=== PATIENT | female | born 1970 | race Caucasian/White ===

== ENCOUNTER 2019-10-12 12:19 | Emergency (ER) | payer OTHER ==
[~2019-10-12] VITALS: Ht 149.9 cm; Wt 65.8 kg
[2019-10-12 12:40] VITALS: BP 141/77
--- NOTE | 2019-10-12 12:50 | NUR ---
PT WHEELCHAIRED TO ER BED 11
--- NOTE | 2019-10-12 13:03 | NUR ---
48 Y/O FEMALE REFFERED TO ER FROM MD DAWSON D/T HIGH BLOOD PRESSURE. PT REPORTS BP SYSTOLIC >200 FOR THIS WEEKEND DESPITE TAKING HTN MEDS. THIS MORNING PT TOOK METOPROLOL + HYDRALIZINE. PT C/O HEAD ACHE 8/10 + LEFT SIDED BODY ACHES. DENIES ANY N/V/SOB/CP. PT ALSO C/O SMALL ABCESS NOTED ON THE BACK OF PTS HEAD ON RIGHT SIDE. VSS AT THIS TIME. PMH: HTN, DM, DIALYSIS ( PT STATES SHE WENT 4 TIMES LAST WEEK ) ALLERGIES: PENICILLINS
[2019-10-12 13:37] LABS: BASOPHILS % (AUTO) 0.6 % (0.0-2.0); EOSINOPHILS # (AUTO) 0.1 K/uL (0-0.4); EOSINOPHILS % (AUTO) 2.1 % (0.0-4.0); HEMATOCRIT 40.5 % (36-48); HEMOGLOBIN 12.9 g/dL (12.0-16.0); LYMPHOCYTES # (AUTO) 0.7 K/uL (2.5-16.5); LYMPHOCYTES % (AUTO) 14.8 % (20.5-51.1); MEAN CORPUSCULAR HEMOGLOBIN 32 pg (27-31); MEAN CORPUSCULAR HGB CONC 32 g/dL (33-37); MONOCYTES # (AUTO) 0.3 K/uL (0.8-1.0); MONOCYTES % (AUTO) 7.4 % (1.7-9.3); NEUTROPHILS # (AUTO) 3.5 K/uL (1.8-7.7); NEUTROPHILS % (AUTO) 75.1 % (42.2-75.2); PLATELET COUNT (AUTO) 149 K/uL (140-450); RED BLOOD CELL COUNT(AUTO) 4.01 MIL/uL (4.20-5.40); RED CELL DISTRIBUTION WIDTH 15.6 % (11.6-13.7); WHITE BLOOD COUNT (AUTO) 4.6 K/uL (4.8-10.8)
--- NOTE | 2019-10-12 13:37 | NUR ---
PT TAKEN TO CT SCAN VIA ELDA
[2019-10-12 13:52] LABS: PROTHROMBIN TIME 9.7 secs (10.8-13.4)
[2019-10-12 13:54] LABS: ALBUMIN 3.6 g/dL (3.4-5.0); ANION GAP 16.1 (8-16); CARBON DIOXIDE 28.7 mmol/L (21-32); POTASSIUM 4.8 mmol/L (3.5-5.1); TOTAL BILIRUBIN 0.3 mg/dL (0.0-1.0)
[2019-10-12 13:59] LABS: CREATININE 5.1 mg/dL (0.6-1.3)
[2019-10-12] MEDS ORDERED: ACETAMINOPHEN EXTRA STRENGTH 500 MG TAB PO ONE (14:20)
[2019-10-12 14:45] VITALS: BP 157/106
--- NOTE | 2019-10-12 14:45 | NUR ---
Patient discharged with v/s stable. Written and verbal after care instructions given and explained. Patient alert, oriented and verbalized understanding of instructions. Ambulatory with by caregiver. All questions addressed prior to discharge. ID band removed. Patient advised to follow up with PMD. Opportunity to ask questions provided and answered.
== END 2019-10-12 14:45 | disposition home or self-care (01) ==
LOC: MED 12:19
DX: E11.22 Type 2 diabetes mellitus with diabetic chronic kidney disease (principal); I12.0 Hypertensive chronic kidney disease with stage 5 chronic kidney disease or end stage renal disease; N18.6 End stage renal disease; G44.209 Tension-type headache, unspecified, not intractable; Z99.2 Dependence on renal dialysis; Z88.0 Allergy status to penicillin
CPT/HCPCS: 36415; 70450; 71045; 80053; 83880; 84484; 85025; 85610; 85730; 93005; 99285; Q0092

== ENCOUNTER 2019-10-24 12:17 | Inpatient (IN) | payer OTHER, SELFPAY ==
[~2019-10-24] VITALS: Ht 149.9 cm; Wt 61.7 kg
[2019-10-24 12:30] VITALS: BP 100/56
--- NOTE | 2019-10-24 12:35 | NUR ---
PT WHEELED TO BED 1.
--- NOTE | 2019-10-24 12:40 | NUR ---
48 Y/F PRESENTS TO ED WITH C/o weakness, fatigue, cough, sob, diarrhea, body aches x 2 days Denies fever, n/v, positive covid contacts. Son has cold symptoms. PT A&O X 4, RR EVEN AND UNLABORED, LUNGS CLEAR. ABD SOFT, BS ACTIVE X 4, PULSES 1+. PT SATTING 90%ON RA PLACED ON 4 L NC. Hx- ESRD on HD with left UA shunt, DM, CHF, HTN, LOSS OF VISION ALLERGIES -PENICILLIN
--- NOTE | 2019-10-24 12:55 | NUR ---
LAB AT BEDSIDE.
--- NOTE | 2019-10-24 13:00 | NUR ---
DR. JOY AT BEDSIDE.
--- NOTE | 2019-10-24 13:16 | NUR ---
XR AT BEDSIDE.
[2019-10-24 13:17] LABS: BASOPHILS % (AUTO) 0.3 % (0.0-2.0); EOSINOPHILS % (AUTO) 0.2 % (0.0-4.0); HEMATOCRIT 44.9 % (36-48); HEMOGLOBIN 14.5 g/dL (12.0-16.0); LYMPHOCYTES # (AUTO) 0.7 K/uL (2.5-16.5); LYMPHOCYTES % (AUTO) 14.3 % (20.5-51.1); MEAN CORPUSCULAR HEMOGLOBIN 33 pg (27-31); MEAN CORPUSCULAR HGB CONC 32 g/dL (33-37); MEAN CORPUSCULAR VOLUME 100.8 fL (80-94); MONOCYTES # (AUTO) 0.6 K/uL (0.8-1.0); NEUTROPHILS # (AUTO) 3.4 K/uL (1.8-7.7); NEUTROPHILS % (AUTO) 72.2 % (42.2-75.2); PLATELET COUNT (AUTO) 126 K/uL (140-450); RED BLOOD CELL COUNT(AUTO) 4.45 MIL/uL (4.20-5.40); RED CELL DISTRIBUTION WIDTH 15.3 % (11.6-13.7); WHITE BLOOD COUNT (AUTO) 4.8 K/uL (4.8-10.8)
[2019-10-24 13:38] LABS: ALBUMIN 3.8 g/dL (3.4-5.0); ANION GAP 19.4 (8-16); CARBON DIOXIDE 24.6 mmol/L (21-32); TOTAL BILIRUBIN 0.4 mg/dL (0.0-1.0)
--- NOTE | 2019-10-24 13:42 | NUR ---
COVID, FLU, AND RSV SWABB COLLECTED AND LAB CALLED FOR PICKUP
[2019-10-24 13:43] LABS: PROTHROMBIN TIME 14.5 secs (10.8-13.4)
[2019-10-24 13:53] LABS: CREATININE 8.5 mg/dL (0.6-1.3)
[2019-10-24 14:11] LABS: FIBRINOGEN 359 mg/dL (200-400)
[2019-10-24 14:15] LABS: D-DIMER 739 ng/ml (0-400)
[2019-10-24 14:22] LABS: RSV NEGATIVE (NEGATIVE)
[2019-10-24] MEDS ORDERED: SODIUM ZIRCONIUM CYCLOSILICATE 10 GM POWD.PACK PO ONE (14:45)
[2019-10-24] MEDS ORDERED: CALCIUM CHLORIDE 10% 100 MG/ML SYR IVP ONE (14:45)
[2019-10-24] MEDS ORDERED: INSULIN REGULAR, HUMAN 100 UNIT/ML VIAL SUBQ ONE (14:45)
[2019-10-24] MEDS ORDERED: KETOROLAC 30 MG/ML VIAL IVP ONE (15:10)
[2019-10-24] MEDS ORDERED: ONDANSETRON 4 MG/2 ML VIAL IVP ONE (15:10)
--- NOTE | 2019-10-24 15:26 | NUR ---
DIABETIC DIET ORDERED FOR PT, OK PER DR. JOY.
--- NOTE | 2019-10-24 15:55 | NUR ---
pts daughter carter for updates [phone]
--- NOTE | 2019-10-24 17:22 | NUR ---
CALLED PTS DAUGHTER NIDHI INFORMED HER OF PTS ADMISSION AND UPDATED HER ON PTS STATUS.
[2019-10-24] MEDS ORDERED: GABA300C PO (17:33)
[2019-10-24] MEDS ORDERED: SEVE800T6 PO (17:34)
[2019-10-24] MEDS ORDERED: HYDR100T79 PO (17:37)
[2019-10-24] MEDS ORDERED: ASPI-1822 PO (17:39)
[2019-10-24] MEDS ORDERED: AMLO10TA PO (17:40)
[2019-10-24] MEDS ORDERED: METO-624 PO (17:41)
--- NOTE | 2019-10-24 17:55 | NUR ---
Patient will be admitted to care of . Admited to TELE. Will go to room 120. Belongings list completed. Report to SHEBA FULTON.
--- NOTE | 2019-10-24 17:55 | NUR ---
RECEIVED REPORT FROM ER NURSE, PT IS STABLE, PT ON 4L NC OXYGEN, PT HAS RH 22G SALINE LOCK, PT HAS LEFT AV SHUNT, INTRODUCE PT TO ROOM, MRSA SWAB OBTAINED, BED IN LOW POSITION, SAFETY MEASURES IN PLACE, INTRODUCE SELF, UPDATED WHITEBOARD, CALL LIGHT WITHIN REACH. WILL CONTINUE TO MONITOR
--- NOTE | 2019-10-24 17:55 | NUR ---
Patient will be admitted to care of []. Admited to [g ED.ADMIT]. Will go to room[]. Belongings list completed. Report to [].
[2019-10-24] MEDS ORDERED: LOSA100T1 PO (18:02)
[2019-10-24] MEDS ORDERED: LORazepam 2 MG/ML VIAL IVP PRN (18:25)
[2019-10-24] MEDS ORDERED: ACETAMINOPHEN 325 MG TAB PO PRN (18:25)
--- NOTE | 2019-10-24 19:25 | NUR ---
GAVE REPORT TO NIGHT NURSE FOR CONTINUITY OF CARE, PT IS STABLE.
[2019-10-24 20:23] LABS: CREATINE KINASE MB 1.4 ng/mL (0-3.6)
[2019-10-24] MEDS: BLOOD GLUCOSE MONITORING 1 DEV DEV FS SCH (21:00)
[2019-10-24] MEDS ORDERED: BLOOD GLUCOSE MONITORING 1 DEV DEV FS SCH (21:00)
--- NOTE | 2019-10-24 21:05 | NUR ---
SPOKE TO Jo Ann AMEZQUITA REGARDING TROPONIN LEVEL OF 0.089. NO NEW ORDERS PER MD. PATIENT IS IN STABLE CONDITION. NO C/O PAIN. NO S/S ACUTE DISTRESS. CALL LIGHT WITHIN REACH.
[2019-10-24] MEDS: INSULIN LISPRO SLIDING SCALE 100 UNITS/ML VIAL SUBQ PRN (22:44)
--- NOTE | 2019-10-24 23:00 | NUR ---
PATIENT ASLEEP. NO S/S ACUTE DISTRESS. CALL LIGHT WITHIN REACH. SAFETY PRECAUTIONS IN PLACE. ISOLATION PRECAUTIONS OBSERVED.
[2019-10-25] VITALS: BP 101/64
--- NOTE | 2019-10-25 02:58 | NUR ---
MADE ROUNDS. PATIENT IS ASLEEP AND IN STABLE CONDITION. NO S/S ACUTE DISTRESS. CALL LIGHT WITHIN REACH. SAFETY PRECAUTIONS IN PLACE. ISOLATION PRECAUTIONS OBSERVED.
[2019-10-25 04:00] VITALS: BP 141/79
[2019-10-25] MEDS: BLOOD GLUCOSE MONITORING 1 DEV DEV FS SCH ×4 (06:39→21:23)
--- NOTE | 2019-10-25 06:52 | NUR ---
MADE ROUND, PATIENT IN STABLE CONDITION. NO COMPLIANT OF PAIN. NO S/S OF DISTRESS. CALL LIGHT WITHIN REACH. SAFETY PRECAUTIONS INITIATED.
--- NOTE | 2019-10-25 07:28 | NUR ---
RECEIVED BEDSIDE SHIFT REPORT FROM PARTS PRODUCT ANALYST NURSE FOR CONTINUATION OF CARE.
[2019-10-25 08:00] VITALS: BP 160/88
[2019-10-25] MEDS ORDERED: Z-GUARD PASTE TP ONE (08:39)
[2019-10-25] MEDS ORDERED: LOSARTAN 50 MG TAB PO SCH (09:00)
[2019-10-25] MEDS: ASPIRIN 81 MG TAB.CHEW PO SCH (09:16)
[2019-10-25] MEDS: hydrALAZINE 25 MG TAB PO SCH ×3 (09:16→16:39)
[2019-10-25] MEDS: GABAPENTIN 100 MG CAP PO SCH (09:17)
[2019-10-25] MEDS: METOPROLOL 50 MG TAB PO SCH (09:17)
[2019-10-25] MEDS: amLODIPine 5 MG TAB PO SCH (09:17)
[2019-10-25] MEDS: SEVELAMER CARBONATE 800 MG TAB PO SCH ×3 (09:17→17:00)
--- NOTE | 2019-10-25 09:25 | NUR ---
PATIENT HAS BEEN SCREENED AND CATEGORIZED MODERATE NUTRITION RISK. PATIENT WILL BE SEEN WITHIN 3-5 DAYS OF ADMISSION. 10/27/2019-10/29/[address]
[2019-10-25] MEDS: HYDROcodone/APAP 5/325 MG 1 TAB TAB PO PRN (10:39)
[2019-10-25 10:41] LABS: BASOPHILS % (AUTO) 0.4 % (0.0-2.0); HEMATOCRIT 41.3 % (36-48); HEMOGLOBIN 13.3 g/dL (12.0-16.0); LYMPHOCYTES # (AUTO) 0.3 K/uL (2.5-16.5); LYMPHOCYTES % (AUTO) 3.9 % (20.5-51.1); MEAN CORPUSCULAR HEMOGLOBIN 33 pg (27-31); MEAN CORPUSCULAR HGB CONC 32 g/dL (33-37); MEAN CORPUSCULAR VOLUME 101.1 fL (80-94); MONOCYTES # (AUTO) 0.4 K/uL (0.8-1.0); MONOCYTES % (AUTO) 5.1 % (1.7-9.3); NEUTROPHILS # (AUTO) 6.9 K/uL (1.8-7.7); NEUTROPHILS % (AUTO) 90.6 % (42.2-75.2); PLATELET COUNT (AUTO) 111 K/uL (140-450); RED BLOOD CELL COUNT(AUTO) 4.08 MIL/uL (4.20-5.40); RED CELL DISTRIBUTION WIDTH 15.2 % (11.6-13.7); WHITE BLOOD COUNT (AUTO) 7.6 K/uL (4.8-10.8)
[2019-10-25 10:53] LABS: MAGNESIUM 2.3 mg/dL (1.8-2.4); PHOSPHORUS 7.6 mg/dL (2.5-4.9)
[2019-10-25 10:54] LABS: ANION GAP 23.6 (8-16); CARBON DIOXIDE 18.3 mmol/L (21-32)
[2019-10-25 11:09] LABS: CREATININE 10.1 mg/dL (0.6-1.3); POTASSIUM 6.9 mmol/L (3.5-5.1)
--- NOTE | 2019-10-25 11:13 | NUR ---
RECEIVED CRITICAL LAB POTASSIUM: 6.9. dR. Klein PAGED, WAITING FOR CALL BACK, PATIENT HAD N/V, AND ELEVATED BLOOD PRESSURE AT TIME OF MED PASS.
[2019-10-25] MEDS ORDERED: CALCIUM GLUCONATE 10% 1000 MG/10 ML VIAL IVP SCH (11:30)
[2019-10-25 12:00] VITALS: BP 105/58
[2019-10-25] MEDS: INSULIN LISPRO SLIDING SCALE 100 UNITS/ML VIAL SUBQ PRN ×2 (12:02→21:26)
--- NOTE | 2019-10-25 12:09 | NUR ---
ORDERED STAT DIALYSIS, 1GM OF CALCIUM GLUCONATE IVP. PUSHED MED OVER 6.5 MINUTES, TOLERATED WELL. BLOOD PRESSURE IS 107/68. O2 98%. DENIES N/V.
[2019-10-25 16:00] VITALS: BP 98/58
--- NOTE | 2019-10-25 16:21 | NUR ---
TOLERATED DIALYSIS WELL, PATIENT DENIES N/V. LAST BLOOD PRESSURE WAS 98/58. PATIENT APPEARS TIRED, BUT IS RESPONSIVE TO VERBAL COMMANDS, AAOX4.
--- NOTE | 2019-10-25 19:24 | NUR ---
BEDSIDE SHIFT REPORT GIVEN TO [employer] SAL[employer]OD [employer] COOKING NURSE FOR CONTINUATION OF CARE.
[2019-10-25 19:42] LABS: CREATINE KINASE MB 2.1 ng/mL (0-3.6)
[2019-10-25 20:00] VITALS: BP 145/67
--- NOTE | 2019-10-25 22:00 | NUR ---
PAGED DR. Ronen ADAM,LEFT A MESSAGE, NO ANSWER
[2019-10-26] VITALS: BP 114/60
--- NOTE | 2019-10-26 | NUR ---
IV STARTED ON THE R WRIST G 24, PATENT AND INTACT
[2019-10-26] MEDS: ONDANSETRON 4 MG/2 ML VIAL IVP PRN (00:18)
--- NOTE | 2019-10-26 00:18 | NUR ---
PT C/O OF NAUSEA EARLIER, AND STILL C/O OF NAUSEA WAS NOT ABLE TO GIVE IT EARLIER SINCE IV WAS ACCIDENTALLY PULLED OUT BY PATIENT, AND ATTEMPTS WERE MADE TO INSERT AN IV , BUT UNSUCCESSFUL.
--- NOTE | 2019-10-26 01:30 | NUR ---
PHARMACY CHANGED THE ORDER OF DR. LAWSON FROM 40 MG TO 30 MG. Addendum: 10/26/19 at 0130 by Radha Zarco RN FOR LOVENOX
--- NOTE | 2019-10-26 02:53 | NUR ---
LEFT AV SHUNT FOR DIALYSI S, INTACT AND COVERED W/ DRESSING
[2019-10-26] MEDS: BLOOD GLUCOSE MONITORING 1 DEV DEV FS SCH ×4 (05:47→22:25)
[2019-10-26] MEDS: INSULIN LISPRO SLIDING SCALE 100 UNITS/ML VIAL SUBQ PRN ×4 (05:59→23:16)
[2019-10-26 06:00] VITALS: BP 124/84
--- NOTE | 2019-10-26 06:15 | NUR ---
NIK OF LAB SAID HE IS NOT ABLE TO GET BLOOD, WILL INFORM AM SHIFT TO DRAW BLOOD. WILL HAVE SOME DELAY
--- NOTE | 2019-10-26 07:30 | NUR ---
ENDORSED TO NEXT RNLEEANN TO INFORMS DR. ADAM, ALTHOUGH I ALREADY PAGED THE EXCHANGED ON THE INCIDENT LAST NIGHT. AWAITING DR. ADAM TO CALL BACK.
[2019-10-26 08:00] VITALS: BP 115/60
[2019-10-26 08:08] LABS: BASOPHILS % (AUTO) 0.7 % (0.0-2.0); HEMATOCRIT 43.3 % (36-48); HEMOGLOBIN 14.1 g/dL (12.0-16.0); LYMPHOCYTES # (AUTO) 0.7 K/uL (2.5-16.5); LYMPHOCYTES % (AUTO) 12.1 % (20.5-51.1); MEAN CORPUSCULAR HEMOGLOBIN 33 pg (27-31); MEAN CORPUSCULAR HGB CONC 33 g/dL (33-37); MEAN CORPUSCULAR VOLUME 100.5 fL (80-94); MONOCYTES # (AUTO) 0.4 K/uL (0.8-1.0); MONOCYTES % (AUTO) 7.5 % (1.7-9.3); NEUTROPHILS # (AUTO) 4.7 K/uL (1.8-7.7); NEUTROPHILS % (AUTO) 79.7 % (42.2-75.2); PLATELET COUNT (AUTO) 103 K/uL (140-450); RED BLOOD CELL COUNT(AUTO) 4.31 MIL/uL (4.20-5.40); WHITE BLOOD COUNT (AUTO) 5.9 K/uL (4.8-10.8)
[2019-10-26 08:31] LABS: MAGNESIUM 2.1 mg/dL (1.8-2.4); PHOSPHORUS 5.2 mg/dL (2.5-4.9)
[2019-10-26] MEDS: ASPIRIN 81 MG TAB.CHEW PO SCH (08:53)
[2019-10-26] MEDS: hydrALAZINE 25 MG TAB PO SCH ×3 (08:53→17:20)
[2019-10-26] MEDS: DEXAMETHASONE 4 MG TAB PO SCH (08:53)
[2019-10-26] MEDS: SEVELAMER CARBONATE 800 MG TAB PO SCH ×3 (08:54→17:11)
[2019-10-26] MEDS: GABAPENTIN 100 MG CAP PO SCH (08:54)
[2019-10-26] MEDS: METOPROLOL 50 MG TAB PO SCH (08:54)
[2019-10-26] MEDS: amLODIPine 5 MG TAB PO SCH (08:54)
[2019-10-26] MEDS ORDERED: ENOXAPARIN 30 MG/0.3 ML SYR SUBQ SCH (09:00)
[2019-10-26 09:07] LABS: CARBON DIOXIDE 23.9 mmol/L (21-32); POTASSIUM 3.9 mmol/L (3.5-5.1)
[2019-10-26 09:08] LABS: CREATININE 6.8 mg/dL (0.6-1.3)
[2019-10-26 12:00] VITALS: BP 100/60
--- NOTE | 2019-10-26 12:19 | NUR ---
HYDRALAZINE DOSE AT 1200 WITHHELD, BP 100/61. WILL CONTINUE TO MONITOR PATIENT.
[2019-10-26] MEDS ORDERED: AZITHROMYCIN 500 MG in DEXTROSE 5% 250 ML IV SCH (14:00)
[2019-10-26] MEDS: NEOMYCIN/POLYMYXIN/BACITRACIN OIN 15 GM TUBE TP SCH ×2 (14:11→21:02)
[2019-10-26] MEDS: guaiFENesin DM 200/20 MG-10 ML 10 ML UDC PO PRN (14:12)
[2019-10-26] MEDS: DIPHENOXYLATE /ATROPINE 2.5 MG TAB PO PRN ×2 (14:13→22:18)
[2019-10-26 16:00] VITALS: BP 122/69
--- NOTE | 2019-10-26 17:10 | NUR ---
SPOKE TO PATIENT ABOUT PENICILLIN ALLERGY, INFORMED PHARMACIST NICOLE THAT PER PATIENT, SHE GETS HIVES AND THROAT SWELLING WHEN GIVEN PENICILLIN, LAST MED GIVEN WAS ROCEPHIN WITH THOSE REACTIONS.
[2019-10-26] MEDS: HYDROcodone/APAP 5/325 MG 1 TAB TAB PO PRN (17:11)
--- NOTE | 2019-10-26 17:11 | NUR ---
NORCO PRN GIVEN FOR LEGS PAIN. PT REQUESTED FOR GABAPENTIN. INFORMED PATIENT OF DAILY SCHEDULE. SHE INFORMED RN PATIENT RECEIVES GABAPENTIN TID [address] ADAM INFORMED PATIENT OF ELEVATED GLUCOSE 488, NO NEW ORDERS, JUST SLIDING SCALE COVERAGE. INSULIN COVERAGE GIVEN.
--- NOTE | 2019-10-26 18:35 | NUR ---
PATIENT'S DAUGHTER CALLED, UPDATED HER ON PATIENT'S CONDITION AND PLAN OF CARE. SON BROUGHT AYALA IN FOR PATIENT.
--- NOTE | 2019-10-26 19:34 | NUR ---
RECEIVED BEDSIDE SHIFT REPORT FROM DAYSHIFT NURSE FOR CONTINUITY OF CARE. PATIENT AWAKE IN BED NO SIGNS OF DISTRESS NOTED. IV PATENT. TELE MONITOR ATTACHED AND CALL LIGHT WITHIN REACH, WILL CONTINUE TO MONITOR
--- NOTE | 2019-10-26 19:35 | NUR ---
REPORT GIVEN TO HAY RAKE OPERATOR NURSE. PATIENT IN STABLE CONDITION.
[2019-10-26 20:00] VITALS: BP 105/60
[2019-10-26] MEDS: APIXABAN 2.5 MG TAB PO SCH (20:56)
[2019-10-26] MEDS ORDERED: NEOMYCIN/POLYMYXIN/BACITRACIN OIN 15 GM TUBE TP SCH (21:00)
[2019-10-26] MEDS: GABAPENTIN 300 MG CAP PO SCH (21:01)
--- NOTE | 2019-10-26 21:01 | NUR ---
ADMINISTERED 2100 MEDICATION TO PATIENT. PATIENT TOLERATED WELL NO SIGNS OF DISTRESS NOTED. WILL CONTINUE TO MONITOR
--- NOTE | 2019-10-26 22:13 | NUR ---
AT PATIENTS REQUESTADMINISTERED PRN DIARRHEA MEDICATION TO PATIENT PER MD ORDER. PATIENT TOLERATED WELL WILL CONTINUE TO MONITOR.
--- NOTE | 2019-10-26 22:25 | NUR ---
OBTAINED A BEDSIDE BS READING OF 312. WILL ADMINISTER COVERAGE PER MD SLIDING SCALE
--- NOTE | 2019-10-26 23:16 | NUR ---
ADMINISTERED COVERAGE PER MD SLIDING SCALE. PATIENT TOLERATED WELL NO SIGNS OF DISTRESS NOTED, WILL CONTINUE TO MONITOR
[2019-10-27] VITALS: BP 114/59
--- NOTE | 2019-10-27 03:52 | NUR ---
ROUNDING, PATIENT RESTING. OBTAINED 0400 VITALS PATIENT TOLERATED WELL. WILL CONTINUE TO MONITOR
[2019-10-27 04:00] VITALS: BP 115/62
[2019-10-27] MEDS: guaiFENesin DM 200/20 MG-10 ML 10 ML UDC PO PRN (05:59)
--- NOTE | 2019-10-27 05:59 | NUR ---
PATIENT REQUESTED PRN COUGH MEDICINE. ADMINISTERED PER MD ORDER. PATIENT TOLERATED WELL.
[2019-10-27] MEDS: BLOOD GLUCOSE MONITORING 1 DEV DEV FS SCH ×3 (06:05→16:30)
--- NOTE | 2019-10-27 07:12 | NUR ---
ENDORSED PATIENT TO DAYSHIFT NURSE FOR CONTINUITY OF CARE. PATIENT IN STABLE CONDITION
--- NOTE | 2019-10-27 07:15 | NUR ---
RECEIVED REPORT FROM NIGHT NURSE. PT AOX4, NO C/O PAIN, NO SOB, RESPIRATIONS ARE EVEN AND UNLABORED. ON ROOM AIR. WITH SKIN INTACT IV SITE AT RH 24G ON SL. ISOLATION PRECAUTION OBSERVED. SAFETY PRECAUTIONS IN PLACE. WILL CONTINUE TO MONITOR.
[2019-10-27 07:21] LABS: BASOPHILS # (AUTO) 0.2 K/uL (0.00-0.22); BASOPHILS % (AUTO) 2.2 % (0.0-2.0); EOSINOPHILS % (AUTO) 0.1 % (0.0-4.0); HEMATOCRIT 42.9 % (36-48); HEMOGLOBIN 13.9 g/dL (12.0-16.0); LYMPHOCYTES # (AUTO) 0.5 K/uL (2.5-16.5); LYMPHOCYTES % (AUTO) 7.5 % (20.5-51.1); MEAN CORPUSCULAR HEMOGLOBIN 33 pg (27-31); MEAN CORPUSCULAR HGB CONC 32 g/dL (33-37); MEAN CORPUSCULAR VOLUME 100.4 fL (80-94); MONOCYTES # (AUTO) 0.6 K/uL (0.8-1.0); MONOCYTES % (AUTO) 8.5 % (1.7-9.3); NEUTROPHILS # (AUTO) 5.5 K/uL (1.8-7.7); NEUTROPHILS % (AUTO) 81.7 % (42.2-75.2); PLATELET COUNT (AUTO) 111 K/uL (140-450); RED BLOOD CELL COUNT(AUTO) 4.27 MIL/uL (4.20-5.40); RED CELL DISTRIBUTION WIDTH 15.1 % (11.6-13.7); WHITE BLOOD COUNT (AUTO) 6.8 K/uL (4.8-10.8)
[2019-10-27 08:00] VITALS: BP 91/58
[2019-10-27 08:03] LABS: ALBUMIN 2.9 g/dL (3.4-5.0); ANION GAP 20.1 (8-16); CARBON DIOXIDE 23.7 mmol/L (21-32); MAGNESIUM 2.2 mg/dL (1.8-2.4); PHOSPHORUS 6.3 mg/dL (2.5-4.9); POTASSIUM 4.8 mmol/L (3.5-5.1); TOTAL BILIRUBIN 0.4 mg/dL (0.0-1.0)
[2019-10-27 08:22] LABS: CREATININE 8.5 mg/dL (0.6-1.3)
--- NOTE | 2019-10-27 08:30 | NUR ---
PT IN BED. BLOOD PRESSURE MEDS HELD DUE TO LOW BLOOD PRESSURE OF 91/58. OTHER DUE MORNING MEDS GIVEN ORDERED
[2019-10-27] MEDS: hydrALAZINE 25 MG TAB PO SCH ×2 (08:55→12:12)
[2019-10-27] MEDS: ASPIRIN 81 MG TAB.CHEW PO SCH (08:55)
[2019-10-27] MEDS: METOPROLOL 50 MG TAB PO SCH (08:55)
[2019-10-27] MEDS: amLODIPine 5 MG TAB PO SCH (08:55)
[2019-10-27] MEDS: GABAPENTIN 100 MG CAP PO SCH (08:56)
[2019-10-27] MEDS: SEVELAMER CARBONATE 800 MG TAB PO SCH ×3 (08:56→17:00)
[2019-10-27] MEDS: GABAPENTIN 300 MG CAP PO SCH ×2 (08:56→12:12)
[2019-10-27] MEDS: NEOMYCIN/POLYMYXIN/BACITRACIN OIN 15 GM TUBE TP SCH (08:56)
[2019-10-27] MEDS: DEXAMETHASONE 4 MG TAB PO SCH (08:56)
[2019-10-27] MEDS: APIXABAN 2.5 MG TAB PO SCH (09:00)
--- NOTE | 2019-10-27 09:15 | NUR ---
DC PLANN[age] YRS OLD FEMALE PATIENT WAS ADMITTED FROM HOME WITH A DX OF HYPERKALEMIA, ACUTE RESP DISTRESS. PT HAS A HX OF CAD CHF, DM ,HTN ESRD AND VISION LOSS. CXR SHOWED BIBASILAR MARKINGS ATELECTASIS PNA CAN NOT BE EXCLUDED. COVID TEST POSITIVE, SEEN BY DR LAWSON ID STARTED ON DECADRON , IVF , CONTINUE HOME MEDS. SEEN BY PROJECT FACILITATOR, CONTINUED HEMODIALYSIS .LORRY WEIGHER DR ADAM Y TO CONTINUE PRESENT CARDIAC THERAPY . PULMO DR WILSON TO CONTINUE IV ABX ZITHROMAX AND ROCEPHIN AND RECOMMENDED ELIQUIS 5MG PO BID . DC PLAN TO GO HOME WHEN STABLE CM TO FOLLOW
[2019-10-27 12:14] VITALS: BP 101/54
--- NOTE | 2019-10-27 12:15 | NUR ---
BLOOD SUGAR 394. COVERAGE GIVEN
[2019-10-27] MEDS: HYDROcodone/APAP 5/325 MG 1 TAB TAB PO PRN (12:50)
--- NOTE | 2019-10-27 12:59 | NUR ---
WITH C/O PAIN ON BUTTOCKS 10/07. REPOSITIONED AND CHANGED BUT INEFFECTIVE. NORCO GIVEN ORDERED. WILL REASSESS IN 1 HOUR
[2019-10-27] MEDS: ONDANSETRON 4 MG/2 ML VIAL IVP PRN (13:42)
[2019-10-27] MEDS: INSULIN LISPRO SLIDING SCALE 100 UNITS/ML VIAL SUBQ PRN ×2 (13:49→18:03)
--- NOTE | 2019-10-27 14:09 | NUR ---
CAR STEREO INSTALLER NOTE: Patient's Orientation Person Situation Place Time Information Provided By NIDHI VITO - DAUGHTER Comments SW WAS UNABLE TO MEET WITH PATIENT AT BEDSIDE DUE TO MEDICAL CONDITION. PER DAUGHTER, PATIENT RESIDES AT [address] [place] [address]. Postal Mail Carrier, Realtionship and Phone Number NIDHI HERNANDEZ [phone] Healthcare Power of Slab Conditioner Supervisor No Does Patient Have a POLST No Identifying Problems No Social Work Triggers Is A Social Work Consult Needed No Mandate Report Filed No Explanation Of Identifying Problems PATIENT IS A 48-YEAR-OLD FEMALE ADMITTED FOR HYPERKALEMIA AND ACUTE RESPIRATORY FAILURE. PATIENT HAS PMHX OF CAD, CHF, DIABETES, HYPERTENSION, ESRD, AND VISION LOSS. Admitted From Home Pre-Admission Level Of Functioning Status Assist With ADL Prior Resources/Services Used In Last 12 Months [facility] Prior Resources/Service Comments PATIENT RECEIVES 120 HOURS FROM [facility]. Prior DME No Prior DME Used Dialysis Hemodialysis [facility] ESRD Outpatient Days [facility] Mode Of Transportation to Dialysis [facility] PROVIDES TRANSPORTATION Living Situation Apartment Lives With Family Patient Had Caregiver Yes Name and Contact Number Of Designated Caregiver NIDHI PADRON - [phone] Home Support No Caregiver Issues CG/Fam Able To Meet Need Financial Issues No Known Financial Issue Referral To The Financial Counselor Needed No Factors/Needs No D/C Needs Identified Pt/Rep Participated In Discharge Plan Yes Patient/Family Agress With Discharge Plan Yes Discharge Plan Comments TENTATIVE DISCHARGE PLAN IS TO RETURN HOME WITH DAUGHTER TO [address] [place] [address]. DC Plan Status Initiated
--- NOTE | 2019-10-27 15:00 | NUR ---
PT IN BED. NO C/O PAIN NO SOB, RESPIRATIONS ARE EVEN AND UNLABORED.
[2019-10-27 16:00] VITALS: BP 122/71
--- NOTE | 2019-10-27 17:00 | NUR ---
DISCHARGE ORDER NOTED. DISCHARGE INSTRUCTIONS AND PRESCRIPTION GIVEN. PT VERBALIZED UNDERSTANDING. PT UNABLE TO SIGN DISCHARGE PAPERS D/T BLINDNESS. IV SITE REMOVED WITH IV LUMEN INTACT. ID BAND REMOVED. GRANDDAUGHTER WILL PICK HER UP AT [phone]. WILL ALSO GIVE DISCHARGE INSTRUCTIONS TO GRANDDAUGHTER
--- NOTE | 2019-10-27 19:00 | NUR ---
STILL WAITING FOR GRANDDAUGHTER TO FRY COOK PT. PT IN BED. NO C/O PAIN NO SOB, RESPIRATIONS ARE EVEN AND UNLABORED. WILL ENDORSE TO NEXT SHIFT FOR CONTINUITY OF CARE
--- NOTE | 2019-10-27 19:30 | NUR ---
RECEIVED PATIENT IN STABLE CONDITION FROM AM SHIFT NURSE FOR CONTINUITY OF CARE. RESPIRATIONS EVEN, UNLABORED. SKIN WARM, DRY. NO C/O PAIN. NO S/S ACUTE DISTRESS. PATIENT CURRENTLY EATING DINNER. CALL LIGHT WITHIN REACH.
--- NOTE | 2019-10-27 19:55 | NUR ---
PATIENT WHEELED TO LOBBY WITH PERSONAL WHEELCHAIR. PATIENT DISCHARGED WITH ALL DISCHARGE PAPERS. EDUCATION PROVIDED TO DAUGHTER REGARDING COVID STATUS AND FOLLOW UP DIALYSIS APPOINTMENT. IV REMOVED. ALL ARMBANDS REMOVED. PATIENT SENT SAFELY WITH DAUGHTER HOME.
[2019-10-27] MEDS ORDERED: hydrALAZINE 25 MG TAB PO SCH (21:00)
[2019-10-27] MEDS ORDERED: GABAPENTIN 300 MG CAP PO SCH (21:00)
== END 2019-10-27 19:55 | disposition home or self-care (01) | DRG 177 ==
LOC: EEVIPCON 12:17 → MED 12:17 → MTU 15:21
PROVIDERS: ADMIT Preventive Medicine Preventive Medicine/Occupational Environmental Medicine; ATTEND Preventive Medicine Preventive Medicine/Occupational Environmental Medicine
PROC: 5A1D70Z Performance of Urinary Filtration, Intermittent, Less than 6 Hours Per Day (ICD-10-PCS; principal; 2019-10-25)
DX: U07.1 COVID-19 (principal); J12.89 Other viral pneumonia; N18.6 End stage renal disease; J96.00 Acute respiratory failure, unspecified whether with hypoxia or hypercapnia; E87.1 Hypo-osmolality and hyponatremia; I13.2 Hypertensive heart and chronic kidney disease with heart failure and with stage 5 chronic kidney disease, or end stage renal disease; J98.11 Atelectasis; I50.42 Chronic combined systolic (congestive) and diastolic (congestive) heart failure; D69.6 Thrombocytopenia, unspecified; E11.22 Type 2 diabetes mellitus with diabetic chronic kidney disease; E11.319 Type 2 diabetes mellitus with unspecified diabetic retinopathy without macular edema; E11.65 Type 2 diabetes mellitus with hyperglycemia; H35.039 Hypertensive retinopathy, unspecified eye; E11.21 Type 2 diabetes mellitus with diabetic nephropathy; H54.7 Unspecified visual loss; I25.10 Atherosclerotic heart disease of native coronary artery without angina pectoris; T38.0X5A Adverse effect of glucocorticoids and synthetic analogues, initial encounter; Y92.89 Other specified places as the place of occurrence of the external cause; Z88.0 Allergy status to penicillin; Z99.2 Dependence on renal dialysis; Z79.899 Other long term (current) drug therapy
CPT/HCPCS: 36415; 36600; 71045; 80048; 80053; 82550; 82553; 82728; 82803; 82948; 83605; 83615; 83735; 83874; 83880; 84100; 84484; 85025; 85379; 85384; 85610; 85651; 85730; 86140; 87040; 87081; 87420; 87804; 90935; 97110; 97161-GP; 99285; J0456; J0610; J1650; J1815; J1885; J2405; J7030; J7060; Q0092; U0003-CS